=== PATIENT | female | born 1980 | race Two or more races ===

== ENCOUNTER 2022-10-16 11:05 | Outpatient (CLI) | payer OTHER | END 2022-10-16 11:15 | disposition home or self-care (01) | LOC: RAD 11:05 | PROVIDERS: ATTEND Orthopaedic Surgery | DX: M79.671 Pain in right foot (principal) ==

== ENCOUNTER 2022-10-28 05:50 | Day surgery (SDC) | payer OTHER ==
[~2022-10-28] VITALS: Ht 154.9 cm; Wt 89.8 kg
== END 2022-10-28 16:30 | disposition home or self-care (01) ==
LOC: CIR.AMB 05:50
PROVIDERS: ATTEND Orthopaedic Surgery
DX: S92.511A Displaced fracture of proximal phalanx of right lesser toe(s), initial encounter for closed fracture (principal); I10 Essential (primary) hypertension; Z76.89 Persons encountering health services in other specified circumstances; E11.9 Type 2 diabetes mellitus without complications; D64.9 Anemia, unspecified; Z20.822 Contact with and (suspected) exposure to COVID-19

== ENCOUNTER 2022-11-27 08:34 | Outpatient (CLI) | payer OTHER | END 2022-11-27 08:47 | disposition home or self-care (01) | LOC: RAD 08:34 | PROVIDERS: ATTEND Orthopaedic Surgery | DX: M79.671 Pain in right foot (principal); M79.672 Pain in left foot ==

== ENCOUNTER 2023-01-08 13:19 | Outpatient (CLI) | payer OTHER | END 2023-01-08 13:31 | disposition home or self-care (01) | LOC: RAD 13:19 | PROVIDERS: ATTEND Orthopaedic Surgery | DX: S92.511S Displaced fracture of proximal phalanx of right lesser toe(s), sequela (principal); T84.614A Infection and inflammatory reaction due to internal fixation device of right ulna, initial encounter ==